=== PATIENT | female | born 1985 | race Caucasian/White ===

== ENCOUNTER 2017-11-04 21:55 | Emergency (ER) | payer OTHER ==
[~2017-11-04] VITALS: Ht 170.2 cm; Wt 63.5 kg
[~2017-11-04 21:55] MED LIST: Bactrim Ds Tab1 EACH PO; CEPH500 PO; CEPHALEXIN 500MG; CETI10 PO; CIPR500 PO; DIPH50 PO; DOXY100T53 PO; HYDACE5 PO; IBUP100S PO; IBUP800 PO; METERG.2 PO; PENICILLIN; PENVK500 PO; PROM25 PO; RXCEPH500 PO; RXHYDACE PO; RXLEVESTKI PO; RXSULTRIDS PO; SULTRIDS PO; TRIA80TC TOP; Veetids 500500 MG PO; Verotin-Gr Cap1 EACH
[2017-11-04] MEDS ORDERED: CEPH500 PO (23:41)
[2017-11-04] MEDS ORDERED: Bactrim Ds Tab1 EACH PO (23:41)
[2018-06-22] MEDS ORDERED: Doxycycline Hy100 MG PO (04:47)
== END 2017-11-04 23:49 | disposition home or self-care (01) ==
LOC: ER 21:55
DX: L03.113 Cellulitis of right upper limb (principal); F17.200 Nicotine dependence, unspecified, uncomplicated
CPT/HCPCS: 10060; 99283

== ENCOUNTER 2018-05-17 09:07 | Emergency (ER) | payer OTHER | END 2018-05-17 10:05 | disposition left against medical advice (07) | LOC: ER 09:07 | DX: Z53.21 Procedure and treatment not carried out due to patient leaving prior to being seen by health care provider (principal) ==

== ENCOUNTER 2018-07-05 02:32 | Emergency (ER) | payer OTHER ==
[~2018-07-05] VITALS: Ht 165.1 cm; Wt 63.5 kg
[~2018-07-05 02:32] MED LIST changes: +Doxycycline Hy100 MG PO
[2018-07-05] MEDS ORDERED: Bactrim Ds Tab1 EACH PO (03:10)
== END 2018-07-05 03:20 | disposition home or self-care (01) ==
LOC: ER 02:32
DX: L02.411 Cutaneous abscess of right axilla (principal)
CPT/HCPCS: 10060; 99283-25

== ENCOUNTER 2018-09-30 03:44 | Emergency (ER) | payer SELFPAY ==
[~2018-09-30] VITALS: Ht 170.2 cm; Wt 61.7 kg
== END 2018-09-30 04:02 | disposition left against medical advice (07) ==
LOC: ER 03:44
DX: R11.0 Nausea (principal); N64.4 Mastodynia; Z87.891 Personal history of nicotine dependence
CPT/HCPCS: 99282

== ENCOUNTER 2018-12-10 13:06 | Emergency (ER) | payer MEDICAID ==
[~2018-12-10] VITALS: Ht 170.2 cm; Wt 68.0 kg
[2018-12-10] MEDS ORDERED: IBUP600 PO (13:38)
[2018-12-10] MEDS ORDERED: Monodox100 MG PO (13:38)
== END 2018-12-10 13:43 | disposition home or self-care (01) ==
LOC: ER 13:06
DX: L03.011 Cellulitis of right finger (principal); Z79.899 Other long term (current) drug therapy; Z87.891 Personal history of nicotine dependence

== ENCOUNTER 2019-04-08 01:27 | Emergency (ER) | payer MEDICAID ==
[~2019-04-08] VITALS: Ht 170.2 cm; Wt 68.0 kg
[~2019-04-08 01:27] MED LIST changes: +IBUP600 PO; +Monodox100 MG PO
== END 2019-04-08 03:33 | disposition home or self-care (01) ==
LOC: ER 01:27
DX: J06.9 Acute upper respiratory infection, unspecified (principal); Z87.891 Personal history of nicotine dependence
CPT/HCPCS: 94640; 96372; 99284-25; J1885

== ENCOUNTER 2020-05-16 23:36 | Emergency (ER) | payer SELFPAY ==
[~2020-05-16] VITALS: Ht 170.2 cm; Wt 68.0 kg
[2020-05-16 23:59] LABS: BASOPHILS ABSOLUTE AUTO 0.03 K/mm3 (0.00-0.23); BASOPHILS PERCENT AUTO 0 % (0-2); EOSINOPHILS ABSOLUTE AUTO 0.05 K/mm3 (0.00-0.68); EOSINOPHILS PERCENT AUTO 1 % (0-6); Hematocrit 36.9 % (33.0-51.0); Hemoglobin 11.8 g/dL (11.5-16.0); IMMATURE GRAN ABSOLUTE AUTO 0.02 K/mm3 (0.00-0.10); IMMATURE GRAN PERCENT AUTO 0 % (0-1); LYMPHOCYTES ABSOLUTE AUTO 2.58 K/mm3 (0.84-5.20); LYMPHOCYTES PERCENT AUTO 35 % (21-46); MONOCYTES ABSOLUTE AUTO 0.75 K/mm3 (0.16-1.47); MONOCYTES PERCENT AUTO 10 % (4-13); Mean Corpuscular HGB 29.4 pg (26.0-34.0); Mean Corpuscular Volume 92 fL (80-100); Mean Platelet Volume 9.4 fL (9.1-12.4); NEUTROPHILS ABSOLUTE AUTO 4.03 K/mm3 (1.96-9.15); NEUTROPHILS PERCENT AUTO 54 % (41-73); Platelet Count 348 K/mm3 (150-400); RDW Coefficient Variation 13.7 % (11.7-14.2); RDW Standard Deviation 46.6 fL (35.1-46.3); Red Blood Cell Count 4.01 M/mm3 (3.80-5.20); White Blood Cell Count 7.46 K/mm3 (4.00-11.30)
[2020-05-17 00:19] LABS: Alanine Aminotransfer (ALT/SGP 69 U/L (12-78); Albumin, Blood 3.5 g/dL (3.4-5.0); Alk Phos 75 U/L (50-136); Anion Gap 6 mmol/L (6-16); Aspartate Aminotrans (AST/SGOT 32 U/L (12-37); Beta HCG, Quantitative, Serum <1 mIU/mL (0-3); Bilirubin, Total 0.4 mg/dL (0.1-1.0); Blood Urea Nitrogen 16 mg/dL (8-24); Bun/Creatinine Ratio 17.6 (12.0-20.0); CO2, Blood 23 mmol/L (21-32); Calcium, Blood 8.8 mg/dL (8.5-10.1); Chloride, Blood 113 mmol/L (98-108); Creatinine, Blood 0.91 mg/dL (0.40-1.00); Ethanol (Alcohol), Blood, Med <3 mg/dL; Globulin, Blood 3.5 g/dL (2.2-4.0); Glomerular Filtration Rate >60 (60-); Glucose, Blood 89 mg/dL (70-99); Sodium, Blood 142 mmol/L (136-145)
[2020-05-17 00:21] LABS: Prothrombin Time Results 10.7 Sec (9.7-11.5)
[2020-05-17] MEDS ORDERED: Norco 10-325 T1 EACH PO (01:23)
== END 2020-05-17 01:37 | disposition home or self-care (01) ==
LOC: ER 23:36
PROVIDERS: Emergency Medicine
DX: S89.91XA Unspecified injury of right lower leg, initial encounter (principal); Z87.891 Personal history of nicotine dependence; V20.9XXA Unspecified motorcycle rider injured in collision with pedestrian or animal in traffic accident, initial encounter; Y92.410 Unspecified street and highway as the place of occurrence of the external cause
CPT/HCPCS: 29505; 36415; 70450; 71045; 72125; 72170; 73552; 73560-RT; 73590; 73610; 80053; 83690; 84702; 85025; 85610; 86850; 86900; 86901; 96374-59; 96375-59; 99285-25; A9270; A9270-GY; G0480; J2405; J3010

== ENCOUNTER 2020-12-19 23:26 | Emergency (ER) | payer OTHER ==
[~2020-12-19] VITALS: Ht 170.2 cm; Wt 68.0 kg
[~2020-12-19 23:26] MED LIST changes: +Norco 10-325 T1 EACH PO
[2020-12-20] MEDS ORDERED: Vibramycin100 MG PO (01:30)
[2020-12-20 02:18] LABS: Candida species (DNA Probe) Negative (NEGATIVE); G. vaginalis (DNA Probe) Positive (NEGATIVE); T. vaginalis (DNA Probe) Negative (NEGATIVE)
[2020-12-20 02:21] LABS: Source, Urine Clean Catch
[2020-12-20] MEDS ORDERED: Flagyl500 MG PO (02:22)
[2020-12-20 02:25] LABS: Appearance, Urine Hazy (Clear); Bilirubin, Urine Neg (Neg); Blood, Urine 2+ (Neg); Color, Urine Yellow (P-Yellow); Glucose Qualitative, Urine Neg (Neg); Ketones, Urine Neg (Neg); Leukocyte Esterase, Urine 3+ (Neg); Nitrite, Urine Neg (Neg); Protein, Urine 2+ (Neg); Urobilinogen, Urine NORM (Normal)
[2020-12-20 02:31] LABS: White Blood Cells, Urine 50-100 /hpf (0-5)
[2020-12-20 02:32] LABS: Bacteria Many /hpf; Calcium Oxalate Crystals Few /hpf; Squamous Epithelial Cells Mod /hpf (Few)
[2020-12-20] MEDS ORDERED: Macrobid 100 M100 MG PO (06:40)
== END 2020-12-20 03:07 | disposition home or self-care (01) ==
LOC: ER 23:26
PROVIDERS: Emergency Medicine
DX: N72 Inflammatory disease of cervix uteri (principal); N76.0 Acute vaginitis
CPT/HCPCS: 81001; 81025; 87086; 87147; 87480; 87510; 87660; 96372; 99283; A9270; A9270-GY; J0696

== ENCOUNTER 2022-02-18 01:37 | Emergency (ER) | payer OTHER ==
[~2022-02-18] VITALS: Ht 170.2 cm; Wt 68.0 kg
[~2022-02-18 01:37] MED LIST changes: +Flagyl500 MG PO; +Macrobid 100 M100 MG PO; +Vibramycin100 MG PO
[2022-02-18] MEDS ORDERED: ERYT.5TO RIGHTEYE (03:55)
[2022-02-19] MEDS ORDERED: CEFD300 PO (06:41)
[2022-02-19] MEDS ORDERED: SULTRIDS PO (06:41)
== END 2022-02-18 04:06 | disposition home or self-care (01) ==
LOC: ER 01:37
DX: H01.001 Unspecified blepharitis right upper eyelid (principal); F17.210 Nicotine dependence, cigarettes, uncomplicated
CPT/HCPCS: A9270

== ENCOUNTER 2022-02-19 05:01 | Emergency (ER) | payer OTHER ==
[~2022-02-19] VITALS: Ht 170.2 cm; Wt 68.0 kg
[~2022-02-19 05:01] MED LIST changes: +ERYT.5TO RIGHTEYE
[2022-02-19] MEDS ORDERED: SULTRIDS PO (06:41)
[2022-02-19] MEDS ORDERED: CEFD300 PO (06:41)
== END 2022-02-19 06:52 | disposition home or self-care (01) ==
LOC: ER 05:01
DX: L03.213 Periorbital cellulitis (principal); H01.001 Unspecified blepharitis right upper eyelid; F17.200 Nicotine dependence, unspecified, uncomplicated
CPT/HCPCS: A9270

== ENCOUNTER 2022-10-02 22:26 | Emergency (ER) | payer OTHER ==
[~2022-10-02] VITALS: Ht 162.6 cm; Wt 54.4 kg
[~2022-10-02 22:26] MED LIST changes: +CEFD300 PO
[2022-10-02 23:03] LABS: BASOPHILS ABSOLUTE AUTO 0.05 K/mm3 (0.00-0.23); BASOPHILS PERCENT AUTO 1 % (0-2); EOSINOPHILS ABSOLUTE AUTO 0.12 K/mm3 (0.00-0.68); EOSINOPHILS PERCENT AUTO 1 % (0-6); Hemoglobin 15.1 g/dL (11.5-16.0); IMMATURE GRAN ABSOLUTE AUTO 0.03 K/mm3 (0.00-0.10); IMMATURE GRAN PERCENT AUTO 0 % (0-1); LYMPHOCYTES ABSOLUTE AUTO 2.65 K/mm3 (0.84-5.20); LYMPHOCYTES PERCENT AUTO 24 % (21-46); MONOCYTES ABSOLUTE AUTO 0.63 K/mm3 (0.16-1.47); MONOCYTES PERCENT AUTO 6 % (4-13); Mean Corpuscular HGB 30.8 pg (26.0-34.0); Mean Corpuscular HGB Conc 32.8 g/dL (31.5-36.5); Mean Corpuscular Volume 94 fL (80-100); Mean Platelet Volume 9.5 fL (9.1-12.4); NEUTROPHILS ABSOLUTE AUTO 7.41 K/mm3 (1.96-9.15); NEUTROPHILS PERCENT AUTO 68 % (41-73); Platelet Count 304 K/mm3 (150-400); RDW Coefficient Variation 13.3 % (11.7-14.2); RDW Standard Deviation 45.3 fL (35.1-46.3); Red Blood Cell Count 4.91 M/mm3 (3.80-5.20); White Blood Cell Count 10.89 K/mm3 (4.00-11.30)
[2022-10-02 23:20] LABS: Albumin, Blood 3.4 g/dL (3.4-5.0); Albumin/Globulin Ratio 1.2 (0.8-1.8); Bilirubin, Total 0.2 mg/dL (0.1-1.0); Bun/Creatinine Ratio 15.5 (12.0-20.0); Calcium, Blood 9.5 mg/dL (8.5-10.1); Creatinine, Blood 1.29 mg/dL (0.40-1.00); Globulin, Blood 2.9 g/dL (2.2-4.0); Potassium, Blood 4.3 mmol/L (3.5-5.5); Total Protein, Blood 6.3 g/dL (6.4-8.2)
== END 2022-10-03 00:41 | disposition left against medical advice (07) ==
LOC: ER 22:26
PROVIDERS: Student in an Organized Health Care Education/Training Program
DX: R55 Syncope and collapse (principal); F15.10 Other stimulant abuse, uncomplicated; Z87.891 Personal history of nicotine dependence
CPT/HCPCS: 36415; 71046; 80053; 84484; 84703; 85025; 93005; 93010; 99284-25; J7030

== ENCOUNTER → 2022-10-09 | Outpatient (CLI) | payer OTHER | END | disposition home or self-care (01) | LOC: LAB 14:43 → LAB SHORT 14:43 | DX: E03.9 Hypothyroidism, unspecified (principal) | CPT/HCPCS: 83880; 84443 ==

== ENCOUNTER 2023-04-11 22:30 | Emergency (ER) | payer OTHER ==
[~2023-04-11] VITALS: Ht 170.2 cm; Wt 68.0 kg
[2023-04-11 22:38] VITALS: BP 135/100
[2023-04-11] MEDS ORDERED: CEPH500 PO (23:28)
== END 2023-04-11 23:33 | disposition home or self-care (01) ==
LOC: ER 22:30
DX: L02.414 Cutaneous abscess of left upper limb (principal); F17.200 Nicotine dependence, unspecified, uncomplicated; X58.XXXA Exposure to other specified factors, initial encounter
CPT/HCPCS: 10060; 99283-25

== ENCOUNTER 2023-10-04 19:10 | Observation (INO) | payer OTHER ==
[~2023-10-04] VITALS: Ht 170.2 cm; Wt 70.6 kg
[2023-10-04 20:07] LABS: BASOPHILS ABSOLUTE AUTO 0.06 K/mm3 (0.00-0.23); BASOPHILS PERCENT AUTO 1 % (0-2); EOSINOPHILS ABSOLUTE AUTO 0.14 K/mm3 (0.00-0.68); EOSINOPHILS PERCENT AUTO 2 % (0-6); Hematocrit 44.2 % (33.0-51.0); Hemoglobin 14.2 g/dL (11.5-16.0); IMMATURE GRAN ABSOLUTE AUTO 0.02 K/mm3 (0.00-0.10); IMMATURE GRAN PERCENT AUTO 0 % (0-1); LYMPHOCYTES ABSOLUTE AUTO 2.36 K/mm3 (0.84-5.20); LYMPHOCYTES PERCENT AUTO 32 % (21-46); MONOCYTES ABSOLUTE AUTO 0.73 K/mm3 (0.16-1.47); MONOCYTES PERCENT AUTO 10 % (4-13); Mean Corpuscular HGB 30.7 pg (26.0-34.0); Mean Corpuscular HGB Conc 32.1 g/dL (31.5-36.5); Mean Corpuscular Volume 96 fL (80-100); Mean Platelet Volume 10.3 fL (9.1-12.4); NEUTROPHILS ABSOLUTE AUTO 4.15 K/mm3 (1.96-9.15); NEUTROPHILS PERCENT AUTO 56 % (41-73); Platelet Count 255 K/mm3 (150-400); RDW Coefficient Variation 13.2 % (11.7-14.2); RDW Standard Deviation 46.4 fL (35.1-46.3); Red Blood Cell Count 4.63 M/mm3 (3.80-5.20); White Blood Cell Count 7.46 K/mm3 (4.00-11.30)
[2023-10-04 20:27] LABS: Albumin, Blood 2.9 g/dL (3.4-5.0); Albumin/Globulin Ratio 0.9 (0.8-1.8); Bilirubin, Total 0.5 mg/dL (0.1-1.0); Bun/Creatinine Ratio 21.6 (12.0-20.0); Calcium, Blood 8.9 mg/dL (8.5-10.1); Creatinine, Blood 1.02 mg/dL (0.40-1.00); Globulin, Blood 3.1 g/dL (2.2-4.0); Potassium, Blood 4.6 mmol/L (3.5-5.5)
[2023-10-04] MEDS ORDERED: FLU VACC QS2023-24(6MOS UP)/PF 60 MCG/0.5 ML SYRINGE IM ONE (22:20)
[2023-10-04] MEDS ORDERED: Furosemide 10 MG/ML 4ML Vial IV SCH (23:00)
[2023-10-04 23:42] LABS: Thyroid Stimulating Hormone 5.23 uIU/mL (0.360-4.800)
[2023-10-05 01:08] VITALS: BP 99/72
[2023-10-05 05:03] LABS: BASOPHILS ABSOLUTE AUTO 0.07 K/mm3 (0.00-0.23); BASOPHILS PERCENT AUTO 1 % (0-2); EOSINOPHILS ABSOLUTE AUTO 0.15 K/mm3 (0.00-0.68); EOSINOPHILS PERCENT AUTO 2 % (0-6); Hemoglobin 15.2 g/dL (11.5-16.0); IMMATURE GRAN ABSOLUTE AUTO 0.01 K/mm3 (0.00-0.10); IMMATURE GRAN PERCENT AUTO 0 % (0-1); LYMPHOCYTES ABSOLUTE AUTO 2.55 K/mm3 (0.84-5.20); LYMPHOCYTES PERCENT AUTO 36 % (21-46); MONOCYTES ABSOLUTE AUTO 0.75 K/mm3 (0.16-1.47); MONOCYTES PERCENT AUTO 11 % (4-13); Mean Corpuscular HGB 31.7 pg (26.0-34.0); Mean Corpuscular HGB Conc 33.8 g/dL (31.5-36.5); Mean Corpuscular Volume 94 fL (80-100); Mean Platelet Volume 10.4 fL (9.1-12.4); NEUTROPHILS ABSOLUTE AUTO 3.48 K/mm3 (1.96-9.15); NEUTROPHILS PERCENT AUTO 50 % (41-73); Platelet Count 262 K/mm3 (150-400); RDW Coefficient Variation 13.2 % (11.7-14.2); RDW Standard Deviation 45.4 fL (35.1-46.3); Red Blood Cell Count 4.79 M/mm3 (3.80-5.20); White Blood Cell Count 7.01 K/mm3 (4.00-11.30)
[2023-10-05 05:24] LABS: Alanine Aminotransfer (ALT/SGP 75 U/L (12-78); Albumin, Blood 2.9 g/dL (3.4-5.0); Alk Phos 115 U/L (50-136); Anion Gap 3 mmol/L (6-16); Aspartate Aminotrans (AST/SGOT 56 U/L (12-37); Bilirubin, Total 0.3 mg/dL (0.1-1.0); Blood Urea Nitrogen 26 mg/dL (8-24); Bun/Creatinine Ratio 26.3 (12.0-20.0); CHOL/HDL RATIO 3.3; CO2, Blood 29 mmol/L (21-32); Chloride, Blood 107 mmol/L (98-108); Cholesterol 170 mg/dL (50-200); Creatinine, Blood 0.99 mg/dL (0.40-1.00); Globulin, Blood 2.9 g/dL (2.2-4.0); Glomerular Filtration Rate 76 (60-); Glucose, Blood 97 mg/dL (70-99); HDL Cholesterol 52 mg/dL (>39); LDL/HDL RATIO 1.7; Low Density Lipoprotein Chol 90 mg/dL (0-110); Potassium, Blood 4.1 mmol/L (3.5-5.5); Sodium, Blood 139 mmol/L (136-145); Total Protein, Blood 5.8 g/dL (6.4-8.2); Triglycerides 142 mg/dL (30-140); Very Low Density Lipoprot Chol 28 mg/dL (6-28)
[2023-10-05 05:41] VITALS: BP 99/69
--- NOTE | 2023-10-05 05:50 | NUR ---
SHIFT SUMMARY PT ARRIVED FROM ED AT ABOUT 2330. ORIENTED TO ROOM. PT A&OX4 AND PLEASANT. DENIED FEELING SOB. NO C/O PAIN. INDEPENDENT IN ROOM. VSS. LASIX GIVEN PER EMAR. PT EDUCATED ON STRICT I&O'S. BOYFRIEND IN ROOM. BED IN LOWEST POSITION AND CALL LIGHT IN REACH.
[2023-10-05 08:18] VITALS: BP 118/77
[2023-10-05] MEDS ORDERED: Enoxaparin 40 MG/0.4 ML SYR SC SCH (09:00)
--- NOTE | 2023-10-05 12:27 | NUR ---
PT HAD VAPE PEN IN ROOM AND BOYFRIEND HAD PACK OF CIGARETTES LAYING ON WINDOW SILL BUT WAS NOT IN THE ROOM. PT EDUCATED ON NON SMOKING POLICY AND OFFERED A NICOTINE PATCH OR NICORETTE GUM ORDER TO BE REQUESTED BY . PT VU AND WILLINGLY HANDED OVER VAPE PEN AND CIGARETTES AND THEY WERE LOCKED IN THE DRAWER. PT DECLINED OFFER OF NICORETTE GUM AND/OR PATCH. PT ADVISED TO REQUEST IF SHE CHANGED HER MIND FOPR THE GUM OR PATCH.
[2023-10-05 14:23] VITALS: BP 106/69
[2023-10-05] MEDS ORDERED: FURO20 PO (18:45)
== END 2023-10-05 19:46 | disposition home or self-care (01) ==
LOC: ER 19:10 → MEDS 19:11
PROVIDERS: Emergency Medicine; Family Medicine; ADMIT Internal Medicine
DX: I50.9 Heart failure, unspecified (principal); F15.11 Other stimulant abuse, in remission; I27.20 Pulmonary hypertension, unspecified; Z87.891 Personal history of nicotine dependence
CPT/HCPCS: 36415; 71046; 71260; 80053; 80061; 83036; 83880; 84439; 84443; 84484; 84703; 85025; 93005; 93010; 93306; 96372; 96374; 99285-25; G0378; J1650; J1940; Q9967

== ENCOUNTER 2024-06-07 13:44 | Observation (INO) | payer OTHER ==
[~2024-06-07] VITALS: Ht 170.2 cm; Wt 72.6 kg
[~2024-06-07 13:44] MED LIST changes: +FURO20 PO
[2024-06-07 14:17] LABS: BASOPHILS ABSOLUTE AUTO 0.04 K/mm3 (0.00-0.23); BASOPHILS PERCENT AUTO 1 % (0-2); EOSINOPHILS ABSOLUTE AUTO 0.07 K/mm3 (0.00-0.68); EOSINOPHILS PERCENT AUTO 1 % (0-6); Hematocrit 43.1 % (33.0-51.0); Hemoglobin 14.2 g/dL (11.5-16.0); IMMATURE GRAN ABSOLUTE AUTO 0.01 K/mm3 (0.00-0.10); IMMATURE GRAN PERCENT AUTO 0 % (0-1); LYMPHOCYTES ABSOLUTE AUTO 1.99 K/mm3 (0.84-5.20); LYMPHOCYTES PERCENT AUTO 24 % (21-46); MONOCYTES PERCENT AUTO 7 % (4-13); Mean Corpuscular HGB 30.2 pg (26.0-34.0); Mean Corpuscular HGB Conc 32.9 g/dL (31.5-36.5); Mean Corpuscular Volume 92 fL (80-100); NEUTROPHILS ABSOLUTE AUTO 5.53 K/mm3 (1.96-9.15); NEUTROPHILS PERCENT AUTO 67 % (41-73); Platelet Count 255 K/mm3 (150-400); RDW Coefficient Variation 13.2 % (11.7-14.2); RDW Standard Deviation 44.6 fL (35.1-46.3); White Blood Cell Count 8.24 K/mm3 (4.00-11.30)
[2024-06-07 14:30] LABS: Albumin, Blood 3.1 g/dL (3.4-5.0); Bilirubin, Total 0.6 mg/dL (0.1-1.0); Bun/Creatinine Ratio 10.9 (12.0-20.0); Calcium, Blood 8.2 mg/dL (8.5-10.1); Creatinine, Blood 0.83 mg/dL (0.40-1.00); Globulin, Blood 3.2 g/dL (2.2-4.0); Potassium, Blood 3.8 mmol/L (3.5-5.5); Total Protein, Blood 6.3 g/dL (6.4-8.2)
[2024-06-07] MEDS ORDERED: Furosemide 10 MG/ML 4ML Vial IV ONE (15:15)
[2024-06-07] MEDS ORDERED: Ondansetron HCl 2 MG / ML 2ML Vial IV PRN (18:20)
[2024-06-07] MEDS ORDERED: FLU VACC TS2024-25(6MOS UP)/PF 45 MCG/0.5 ML SYRINGE IM ONE (18:25)
[2024-06-07] MEDS ORDERED: Acetaminophen 325 MG TABLET PO PRN (18:25)
[2024-06-07] MEDS ORDERED: HydrOXYzine Pamoate 25 MG Cap PO PRN (18:25)
[2024-06-07 19:17] VITALS: BP 110/77
--- NOTE | 2024-06-07 21:33 | NUR ---
CHARTED ON PT R/T ADMISSION, PT LEFT AMA FROM ER
[2024-06-08] MEDS ORDERED: Enoxaparin 40 MG/0.4 ML SYR SC SCH (09:00)
== END 2024-06-07 21:30 | disposition left against medical advice (07) ==
LOC: ER 13:44 → MEDS 13:45
PROVIDERS: Student in an Organized Health Care Education/Training Program; ADMIT Internal Medicine
DX: R07.9 Chest pain, unspecified (principal); R55 Syncope and collapse; I27.21 Secondary pulmonary arterial hypertension; I50.810 Right heart failure, unspecified; F41.9 Anxiety disorder, unspecified; F17.210 Nicotine dependence, cigarettes, uncomplicated; Z53.29 Procedure and treatment not carried out because of patient's decision for other reasons
CPT/HCPCS: 70450; 71046; 80053; 83735; 84443; 84484; 85025; 93005; 93010; 96374; 99285-25; G0378; J1940; Q0177

== ENCOUNTER 2024-08-08 02:24 | Emergency (ER) | payer OTHER ==
[~2024-08-08] VITALS: Ht 350.5 cm; Wt 68.0 kg
[2024-08-08] MEDS ORDERED: levETIRAcetam 1,500 MG in NS 100 ML IV ONE (02:35)
[2024-08-08] MEDS ORDERED: NS 1,000 ML IV SCH (02:35)
[2024-08-08 02:45] VITALS: BP 115/84
[2024-08-08] MEDS ORDERED: LEVE500 PO (03:01)
[2024-08-08] MEDS ORDERED: Acetaminophen 500 MG Tab PO ONE (03:05)
== END 2024-08-08 03:35 | disposition home or self-care (01) ==
LOC: ER 02:24
DX: R56.9 Unspecified convulsions (principal); F17.200 Nicotine dependence, unspecified, uncomplicated; Z79.899 Other long term (current) drug therapy
CPT/HCPCS: 93005; 93010; 96365; 99285-25; A9270; J1953; J7030